=== PATIENT | male | born 1975 | race Caucasian/White ===

== ENCOUNTER 2020-04-01 15:05 | Inpatient (IN) | payer OTHER ==
[~2020-04-01] VITALS: Ht 185.4 cm; Wt 106.0 kg
[2020-04-01] MEDS ORDERED: SODIUM CHLORIDE 0.9% 1,000 ML IV ONE (15:13)
[2020-04-01] MEDS ORDERED: HYDROmorphone 1 MG/ML, 1ML INJ ONE ×2 (15:21→16:40)
[2020-04-01] MEDS: HYDROmorphone 2 MG/ML, 1ML IVPush PRN ×2 (15:23→16:51)
[2020-04-01] MEDS ORDERED: SODIUM CHLORIDE FLUSH 10ML SYR IVF ONE (15:30)
[2020-04-01] MEDS ORDERED: ONDANSETRON 2MG/ML, 2ML IVPush ONE (15:30)
[2020-04-01 15:41] LABS: CREATININE 1.36 mg/dL (0.7-1.3)
[2020-04-01 15:46] LABS: TROPONIN I < 0.015 ng/mL (0.000-0.045)
[2020-04-01 16:00] LABS: MICROSCOPIC NOT IND
--- NOTE | 2020-04-01 16:04 | NUR ---
PT LAYING ON GURNEY WITH EYES CLOSED, RESPONDS APPROP TO STAFF, NAD, COMFORT MEASURES PROVIDED, AT BS, CALL LIGHT WITHIN REACH.
[2020-04-01 16:10] LABS: ANION GAP 12 mmol/L (5-15); CHLORIDE 105 mmol/L (98-107)
[2020-04-01 16:13] LABS: BILIRUBIN,TOTAL 0.6 mg/dL (0.2-1.0)
[2020-04-01 16:14] LABS: ALANINE AMINOTRANSFERASE 51 U/L (12-78); ALKALINE PHOSPHATASE 97 U/L (45-117); TOTAL PROTEIN 7.6 g/dL (6.4-8.2)
[2020-04-01 16:15] LABS: MEAN CORPUSCULAR HEMOGLOBIN 30.5 pg (27.5-34.5); MEAN CORPUSCULAR HGB CONC 34.4 g/dL (33.2-36.2); RED BLOOD COUNT 4.58 x10^6/uL (4.38-5.82)
[2020-04-01 16:17] LABS: MEAN PLATELET VOLUME 7.5 fL (7.4-10.4); PLATELET COUNT 266 x10^3/uL (130-400)
[2020-04-01 16:19] LABS: MD YES
[2020-04-01 16:25] LABS: CALCIUM 9.1 mg/dL (8.5-10.1)
[2020-04-01 16:26] LABS: BAND#(MANUAL) 0.32 x10^3/uL; BANDS%(MANUAL) 3 % (0-7); EOS#(MANUAL) 0.11 x10^3/uL (0.0-0.4); EOS% (MANUAL) 1 % (1-7); LYMPH#(MANUAL) 1.47 x10^3/uL (1-3.4); LYMPHS% (MANUAL) 14 % (22-44); MONOS#(MANUAL) 0.63 x10^3/uL (0.3-2.7); MONOS% (MANUAL) 6 % (2-9); SEG#(MANUAL) 7.98 x10^3/uL (1.8-6.8); SEGS% (MANUAL) 76 % (42-75)
[2020-04-01 16:27] LABS: ALBUMIN 3.5 g/dL (3.4-5.0)
[2020-04-01 16:30] LABS: <PLATELET ESTIMATE> ADEQUATE; <PLT MORPHOLOGY> NORMAL PLT MORPH; <RBC MORPHOLOGY> NORMAL
[2020-04-01] MEDS ORDERED: INSULIN SINGLE DOSE, ER ONE (16:35)
--- NOTE | 2020-04-01 16:55 | NUR ---
PT CONTINUES LAYING ON GURNEY WITH EYES CLOSED, RESPONDS APPROP TO STAFF, C/O ABD PAIN- MEDICATED PER EMAR, COMFORT MEASURES PROVIDED, AT BS, CALL LIGHT WITHIN REACH.
[2020-04-01] MEDS ORDERED: SODIUM CHLORIDE 0.9% 1,000ML IVBOLUS ONE (17:00)
[2020-04-01] MEDS ORDERED: INSULIN REGULAR 100 UNITS/ML, 3ML VIAL SQ-INSULIN ONE (17:00)
[2020-04-01] MEDS ORDERED: EMPA1TAB PO (17:03)
[2020-04-01] MEDS ORDERED: ATOR20TA37 PO (17:03)
[2020-04-01] MEDS ORDERED: INSU100I28 SQ (17:03)
[2020-04-01] MEDS ORDERED: INSU100C5 SQ-INSULIN (17:03)
[2020-04-01] MEDS ORDERED: METF500T17 PO (17:03)
[2020-04-01] MEDS ORDERED: GEMF600T8 PO (17:03)
[2020-04-01] MEDS ORDERED: TIZA4TAB2 PO (17:03)
[2020-04-01] MEDS ORDERED: RANITIDINE PO (17:03)
[2020-04-01 17:13] LABS: PH, VENOUS 7.348 pH (7.320-7.420)
[2020-04-01] MEDS ORDERED: OMNIPAQUE 350 MG/ML, 100ML BOTTLE ONE (17:22)
[2020-04-01 17:47] LABS: ACETONE, SERUM Trace (Negative)
[2020-04-01] MEDS ORDERED: SODIUM CHLORIDE FLUSH 10ML SYR IVF PRN (18:00)
--- NOTE | 2020-04-01 18:11 | NUR ---
PT LAYING ON GURNEY WITH EYES CLOSED ABLE TO REPOSITION HIMSELF FOR COMFORT, RESPONDS APPROP TO STAFF, NO NEEDS AT THIS TIME, CALL LIGHT WITHIN REACH.
--- NOTE | 2020-04-01 18:56 | NUR ---
REPORT GIVEN TO SATYA JAMES
[2020-04-01] MEDS ORDERED: SODIUM CHLORIDE 0.9% 1,000 ML IV SCH (19:30)
[2020-04-01] MEDS ORDERED: MORPHINE SULFATE 4 MG/ML, 1ML ONE ×2 (19:34→20:25)
[2020-04-01] MEDS: morphine SULFATE 10 MG/ML, 1ML IVPush PRN ×3 (19:54→22:26)
--- NOTE | 2020-04-01 20:00 | NUR ---
Ciera rodriguez in EDM - 04/01/20 at 2018 by ELANA Pt [place]
--- NOTE | 2020-04-01 20:01 | NUR ---
Report given to Glenis JAMES
--- NOTE | 2020-04-01 20:01 | NUR ---
BS 261 finger stick
[2020-04-01] MEDS: SODIUM CHLORIDE 0.9% 1,000 ML IV SCH (20:33)
[2020-04-01 21:17] VITALS: BP 118/75
[2020-04-01] MEDS: HEPARIN 5,000 UNITS/ML, 1ML SQ SCH (22:12)
[2020-04-01] MEDS: INSULIN LISPRO 100 UNITS/ML, PEN SQ-INSULIN SCH (22:13)
[2020-04-01] MEDS: ONDANSETRON 2MG/ML, 2ML IVPush PRN (23:11)
[2020-04-02 00:47] VITALS: BP 110/83
[2020-04-02] MEDS: HYDROmorphone 1 MG/ML, 1ML INJ IV PRN ×7 (01:18→23:43)
[2020-04-02] MEDS: SODIUM CHLORIDE 0.9% 1,000 ML IV SCH ×3 (02:18→21:50)
[2020-04-02] MEDS: INSULIN LISPRO 100 UNITS/ML, PEN SQ-INSULIN SCH ×4 (03:50→20:45)
[2020-04-02 05:35] LABS: ANION GAP 13 mmol/L (5-15); CHLORIDE 98 mmol/L (98-107)
[2020-04-02 05:40] LABS: CREATININE 0.96 mg/dL (0.7-1.3)
[2020-04-02 05:59] LABS: CHOLESTEROL, TOTAL 801 mg/dL (140-239)
[2020-04-02 06:02] LABS: CHOL/HDL RATIO 14.1; HDL CHOL % 7 % (26-37); HDL CHOLESTEROL (DIRECT) 57 mg/dL (40-60)
[2020-04-02 06:10] LABS: TRIGLYCERIDES > 4000 mg/dL (50-200)
[2020-04-02] MEDS: HEPARIN 5,000 UNITS/ML, 1ML SQ SCH ×3 (06:51→23:43)
[2020-04-02 06:57] VITALS: BP 119/88
[2020-04-02 08:18] LABS: MEAN CORPUSCULAR HEMOGLOBIN 29.5 pg (27.5-34.5); MEAN CORPUSCULAR HGB CONC 33.3 g/dL (33.2-36.2); MEAN PLATELET VOLUME 8.2 fL (7.4-10.4); PLATELET COUNT 262 x10^3/uL (130-400); RED BLOOD COUNT 5.63 x10^6/uL (4.38-5.82); RED CELL DISTRIBUTION WIDTH 12.8 % (9.4-14.8)
[2020-04-02 08:20] LABS: BASOPHILS % (AUTO) 0 % (0-1); EOSINOPHILS # (AUTO) 0.01 x10^3/uL (0-0.4); EOSINOPHILS % (AUTO) 0 % (1-7); LYMPHOCYTES # (AUTO) 1.25 x10^3/uL (1-3.4); LYMPHOCYTES % (AUTO) 15 % (22-44); MD SCAN; MONOCYTES # (AUTO) 0.53 x10^3/uL (0.2-0.8); MONOCYTES % (AUTO) 6 % (2-9); NEUTROPHILS # (AUTO) 6.49 x10^3/uL (1.8-6.8); NEUTROPHILS % (AUTO) 78 % (42-75)
[2020-04-02] MEDS ORDERED: PANTOPRAZOLE 40 MG IV ONE (08:32)
[2020-04-02] MEDS: PANTOPRAZOLE 40 MG IV IVPush SCH (08:35)
[2020-04-02] MEDS: ONDANSETRON 2MG/ML, 2ML IVPush PRN ×2 (08:42→20:31)
[2020-04-02] MEDS: BISACODYL 10 MG SUPP PR PRN (10:24)
[2020-04-02] MEDS ORDERED: FAMOTIDINE 20 MG/2 ML IVPush SCH (11:00)
[2020-04-02] MEDS ORDERED: SODIUM BICARBONATE 1 MEQ/ML, 50ML VIAL IVPush SCH (11:00)
[2020-04-02] MEDS ORDERED: ACETAMINOPHEN 325 MG TABLET PO ONE (11:00)
[2020-04-02] MEDS ORDERED: methylPREDNISolone SOD SUCC 125 MG/2 ML IVPush SCH (11:00)
[2020-04-02] MEDS ORDERED: DIPHENHYDRAMINE 50 MG/ML, 1ML IVPush ONE (11:00)
[2020-04-02 15:19] VITALS: BP 127/84
[2020-04-02] MEDS ORDERED: ALBUMIN HUMAN 25%, 25GM/100ML IV PRN (15:30)
[2020-04-02] MEDS ORDERED: CALCIUM GLUCONATE 4.6 MEQ/10 ML IV PRN ×2 (15:30→16:00)
[2020-04-02] MEDS: ALBUMIN HUMAN 5%, 25G/500ML IV PRN (15:52)
[2020-04-02 18:42] LABS: ALBUMIN 3.5 g/dL (3.4-5.0); ANION GAP 10 mmol/L (5-15); CHLORIDE 112 mmol/L (98-107); CREATININE 0.95 mg/dL (0.7-1.3)
[2020-04-02 18:50] LABS: ALKALINE PHOSPHATASE 27 U/L (45-117); BILIRUBIN,TOTAL 0.8 mg/dL (0.2-1.0)
[2020-04-02 20:17] LABS: CALCIUM 6.2 mg/dL (8.5-10.1)
[2020-04-02 20:19] VITALS: BP 113/76
[2020-04-02 20:21] LABS: ALANINE AMINOTRANSFERASE 22 U/L (12-78); TOTAL PROTEIN 6.7 g/dL (6.4-8.2)
[2020-04-03 01:50] VITALS: BP 128/85
[2020-04-03] MEDS: SODIUM CHLORIDE 0.9% 1,000 ML IV SCH ×2 (02:38→08:29)
[2020-04-03] MEDS: HYDROmorphone 1 MG/ML, 1ML INJ IV PRN ×6 (02:38→22:13)
[2020-04-03] MEDS: INSULIN LISPRO 100 UNITS/ML, PEN SQ-INSULIN SCH ×4 (02:47→20:26)
[2020-04-03 05:12] LABS: INTERNATIONAL NORMALIZED RATIO 1.15 (0.93-1.1); PROTHROMBIN TIME 11.9 Seconds (9.6-11.5)
[2020-04-03 05:17] LABS: MEAN CORPUSCULAR HEMOGLOBIN 29.7 pg (27.5-34.5); MEAN PLATELET VOLUME 7.8 fL (7.4-10.4); PLATELET COUNT 266 x10^3/uL (130-400); RED BLOOD COUNT 5.31 x10^6/uL (4.38-5.82); RED CELL DISTRIBUTION WIDTH 13.3 % (9.4-14.8)
[2020-04-03 05:26] LABS: ALBUMIN 3.1 g/dL (3.4-5.0); ANION GAP 12 mmol/L (5-15); CHLORIDE 110 mmol/L (98-107)
[2020-04-03 05:30] LABS: CALCIUM 5.3 mg/dL (8.5-10.1)
[2020-04-03 05:38] LABS: ALKALINE PHOSPHATASE 31 U/L (45-117); BILIRUBIN,TOTAL 0.8 mg/dL (0.2-1.0); CREATININE 0.87 mg/dL (0.7-1.3); TOTAL PROTEIN 5.7 g/dL (6.4-8.2); TRIGLYCERIDES 1071 mg/dL (50-200)
[2020-04-03 05:40] LABS: ALANINE AMINOTRANSFERASE 21 U/L (12-78)
[2020-04-03 05:47] LABS: MD YES
[2020-04-03 05:50] LABS: BAND#(MANUAL) 2.44 x10^3/uL; BANDS%(MANUAL) 29 % (0-7); LYMPHS% (MANUAL) 25 % (22-44); MONOS#(MANUAL) 0.34 x10^3/uL (0.3-2.7); MONOS% (MANUAL) 4 % (2-9); SEG#(MANUAL) 3.53 x10^3/uL (1.8-6.8); SEGS% (MANUAL) 42 % (42-75)
[2020-04-03 05:51] LABS: <PLATELET ESTIMATE> ADEQUATE; <PLT MORPHOLOGY> NORMAL PLT MORPH; <RBC MORPHOLOGY> NORMAL
[2020-04-03] MEDS ORDERED: CALCIUM GLUCONATE 4.6 MEQ/10 ML IVPush ONE (06:30)
[2020-04-03 06:48] VITALS: BP 124/78
[2020-04-03] MEDS ORDERED: CALCIUM GLUCONATE 4.6 MEQ in SODIUM CHLORIDE 0.9% 50 ML IV ONE (07:00)
[2020-04-03] MEDS: PANTOPRAZOLE 40 MG IV IVPush SCH (08:30)
[2020-04-03] MEDS: HEPARIN 5,000 UNITS/ML, 1ML SQ SCH ×3 (08:33→23:33)
[2020-04-03] MEDS ORDERED: CALCIUM GLUCONATE 4.6 MEQ/10 ML IV PRN (09:30)
[2020-04-03] MEDS: ALBUMIN HUMAN 5%, 25G/500ML IV PRN (10:23)
[2020-04-03] MEDS ORDERED: SODIUM BICARBONATE 8.4% 75 MEQ in SODIUM CHLORIDE 0.45% 1,000 ML IV SCH (12:00)
[2020-04-03 13:26] LABS: CALCIUM 6.7 mg/dL (8.5-10.1)
[2020-04-03 13:39] VITALS: BP 130/81
[2020-04-03] MEDS ORDERED: MAGNESIUM SULFATE PMX 2GM/50ML 50 ML IV ONE (19:00)
[2020-04-03] MEDS ORDERED: HEPARIN 25,000 UNITS/250ML PMX 250 ML IV SCH (19:00)
[2020-04-03 20:21] VITALS: BP 117/73
[2020-04-03] MEDS ORDERED: DIPHENHYDRAMINE 50 MG/ML, 1ML IVPush ONE (23:00)
[2020-04-03] MEDS ORDERED: DIPHENHYDRAMINE 50 MG CAPSULE PO ONE (23:30)
[2020-04-04] MEDS ORDERED: MAGNESIUM SULFATE PMX 2GM/50ML 50 ML IV ONE (01:00)
[2020-04-04 03:05] VITALS: BP 99/58
[2020-04-04] MEDS: INSULIN LISPRO 100 UNITS/ML, PEN SQ-INSULIN SCH ×4 (03:15→21:14)
[2020-04-04] MEDS: HYDROmorphone 1 MG/ML, 1ML INJ IV PRN ×5 (03:47→21:14)
[2020-04-04 05:59] LABS: INTERNATIONAL NORMALIZED RATIO 0.96 (0.93-1.1); PROTHROMBIN TIME 9.9 Seconds (9.6-11.5)
[2020-04-04 06:06] LABS: CHLORIDE 108 mmol/L (98-107)
[2020-04-04 06:17] LABS: ALANINE AMINOTRANSFERASE 12 U/L (12-78); ALBUMIN 3.1 g/dL (3.4-5.0); ALKALINE PHOSPHATASE 25 U/L (45-117); ANION GAP 9 mmol/L (5-15); CALCIUM 6.7 mg/dL (8.5-10.1); CREATININE 0.69 mg/dL (0.7-1.3); TOTAL PROTEIN 5.1 g/dL (6.4-8.2); TRIGLYCERIDES 440 mg/dL (50-200)
[2020-04-04 06:23] LABS: MEAN CORPUSCULAR HGB CONC 32.5 g/dL (33.2-36.2); MEAN PLATELET VOLUME 7.4 fL (7.4-10.4); PLATELET COUNT 205 x10^3/uL (130-400); RED BLOOD COUNT 4.51 x10^6/uL (4.38-5.82); RED CELL DISTRIBUTION WIDTH 13.3 % (9.4-14.8)
[2020-04-04 07:00] LABS: MD YES
[2020-04-04] MEDS: SODIUM CHLORIDE 0.9% 1,000 ML IV SCH ×2 (07:14→19:50)
[2020-04-04 07:27] LABS: BAND#(MANUAL) 1.17 x10^3/uL; BANDS%(MANUAL) 17 % (0-7); METAMYELOCYTES# (MANUAL) 0.07 x10^3/uL (0-0); METAMYELOCYTES% (MANUAL) 1 % (0-1); MONOS#(MANUAL) 0.28 x10^3/uL (0.3-2.7); MONOS% (MANUAL) 4 % (2-9); REACTIVE LYMPHS # (MANUAL) 0.07 x10^3/uL (0-0); REACTIVE LYMPHS % (MANUAL) 1 % (0-0); SEGS% (MANUAL) 48 % (42-75)
[2020-04-04 07:28] LABS: <PLATELET ESTIMATE> ADEQUATE; <PLT MORPHOLOGY> NORMAL PLT MORPH; <RBC MORPHOLOGY> NORMAL; LYMPHS% (MANUAL) 29 % (22-44); SEG#(MANUAL) 3.31 x10^3/uL (1.8-6.8)
[2020-04-04 07:38] VITALS: BP 110/69
[2020-04-04] MEDS: PANTOPRAZOLE 40 MG IV IVPush SCH (08:21)
[2020-04-04] MEDS: HEPARIN 5,000 UNITS/ML, 1ML SQ SCH ×2 (08:22→17:07)
[2020-04-04] MEDS ORDERED: HYDROmorphone 2 MG/ML, 1ML ONE (12:49)
[2020-04-04 14:15] VITALS: BP 113/72
[2020-04-04] MEDS ORDERED: CALCIUM CARBONATE 500 MG TAB.CHEW PO PRN (16:00)
[2020-04-04 19:27] VITALS: BP 126/71
[2020-04-05] MEDS: HEPARIN 5,000 UNITS/ML, 1ML SQ SCH ×3 (00:25→16:19)
[2020-04-05] MEDS: HYDROmorphone 1 MG/ML, 1ML INJ IV PRN ×5 (01:43→20:50)
[2020-04-05 01:51] VITALS: BP 125/80
[2020-04-05] MEDS: INSULIN LISPRO 100 UNITS/ML, PEN SQ-INSULIN SCH ×4 (03:01→21:08)
[2020-04-05 06:11] LABS: INTERNATIONAL NORMALIZED RATIO 0.91 (0.93-1.1); PROTHROMBIN TIME 9.4 Seconds (9.6-11.5)
[2020-04-05 06:15] LABS: MEAN CORPUSCULAR HEMOGLOBIN 29.8 pg (27.5-34.5); MEAN CORPUSCULAR HGB CONC 33.5 g/dL (33.2-36.2); MEAN PLATELET VOLUME 7.1 fL (7.4-10.4); PLATELET COUNT 211 x10^3/uL (130-400); RED BLOOD COUNT 4.44 x10^6/uL (4.38-5.82); RED CELL DISTRIBUTION WIDTH 13.5 % (9.4-14.8)
[2020-04-05 06:46] LABS: ANION GAP 11 mmol/L (5-15); CALCIUM 7.9 mg/dL (8.5-10.1); CHLORIDE 104 mmol/L (98-107); CREATININE 0.58 mg/dL (0.7-1.3); TRIGLYCERIDES 402 mg/dL (50-200)
[2020-04-05 06:49] LABS: MD YES
[2020-04-05 06:50] LABS: BAND#(MANUAL) 0.74 x10^3/uL; BANDS%(MANUAL) 8 % (0-7); EOS#(MANUAL) 0.19 x10^3/uL (0.0-0.4); EOS% (MANUAL) 2 % (1-7); LYMPH#(MANUAL) 1.95 x10^3/uL (1-3.4); LYMPHS% (MANUAL) 21 % (22-44); MONOS#(MANUAL) 0.19 x10^3/uL (0.3-2.7); MONOS% (MANUAL) 2 % (2-9); MYELOCYTES# (MANUAL) 0.09 x10^3/uL (0-0); MYELOCYTES% (MANUAL) 1 % (0-0); SEG#(MANUAL) 6.14 x10^3/uL (1.8-6.8); SEGS% (MANUAL) 66 % (42-75)
[2020-04-05 06:51] LABS: <PLATELET ESTIMATE> ADEQUATE; <PLT MORPHOLOGY> NORMAL PLT MORPH; <RBC MORPHOLOGY> NORMAL
[2020-04-05 07:52] VITALS: BP 138/80
[2020-04-05] MEDS: PANTOPRAZOLE 40 MG IV IVPush SCH (09:03)
[2020-04-05] MEDS: SODIUM CHLORIDE 0.9% 1,000 ML IV SCH (09:08)
[2020-04-05 13:45] VITALS: BP 122/76
[2020-04-05 19:59] VITALS: BP 135/88
[2020-04-05] MEDS: POLYETHYLENE GLYCOL 17 GM PACKET PO PRN (20:53)
[2020-04-05 22:32] LABS: MICROSCOPIC AUTO
[2020-04-06 00:04] VITALS: BP 129/80
[2020-04-06] MEDS: HEPARIN 5,000 UNITS/ML, 1ML SQ SCH ×3 (00:30→15:06)
[2020-04-06] MEDS: HYDROcodone/APAP 5/325 TABLET PO PRN ×2 (00:30→06:16)
[2020-04-06] MEDS: HYDROmorphone 1 MG/ML, 1ML INJ IV PRN ×2 (03:16→07:48)
[2020-04-06] MEDS: INSULIN LISPRO 100 UNITS/ML, PEN SQ-INSULIN SCH ×4 (03:25→20:11)
[2020-04-06 06:17] LABS: MEAN CORPUSCULAR HEMOGLOBIN 29.5 pg (27.5-34.5); MEAN CORPUSCULAR HGB CONC 33.5 g/dL (33.2-36.2); MEAN PLATELET VOLUME 6.9 fL (7.4-10.4); PLATELET COUNT 210 x10^3/uL (130-400); RED BLOOD COUNT 4.19 x10^6/uL (4.38-5.82); RED CELL DISTRIBUTION WIDTH 13.3 % (9.4-14.8)
[2020-04-06 06:19] LABS: INTERNATIONAL NORMALIZED RATIO 0.97 (0.93-1.1)
[2020-04-06 06:25] LABS: ANION GAP 9 mmol/L (5-15); CHLORIDE 106 mmol/L (98-107)
[2020-04-06 06:26] LABS: CREATININE 0.59 mg/dL (0.7-1.3); TRIGLYCERIDES 293 mg/dL (50-200)
[2020-04-06 06:38] LABS: MD YES
[2020-04-06 06:41] LABS: <PLATELET ESTIMATE> ADEQUATE; <PLT MORPHOLOGY> NORMAL PLT MORPH; <RBC MORPHOLOGY> NORMAL; BAND#(MANUAL) 0.87 x10^3/uL; BANDS%(MANUAL) 10 % (0-7); EOS#(MANUAL) 0.09 x10^3/uL (0.0-0.4); EOS% (MANUAL) 1 % (1-7); LYMPH#(MANUAL) 0.87 x10^3/uL (1-3.4); LYMPHS% (MANUAL) 10 % (22-44); METAMYELOCYTES# (MANUAL) 0.09 x10^3/uL (0-0); METAMYELOCYTES% (MANUAL) 1 % (0-1); MONOS#(MANUAL) 0.52 x10^3/uL (0.3-2.7); MONOS% (MANUAL) 6 % (2-9); MYELOCYTES# (MANUAL) 0.09 x10^3/uL (0-0); MYELOCYTES% (MANUAL) 1 % (0-0); SEG#(MANUAL) 6.18 x10^3/uL (1.8-6.8); SEGS% (MANUAL) 71 % (42-75)
[2020-04-06] MEDS: SENNA/DOCUSATE TABLET PO SCH (07:32)
[2020-04-06 07:41] VITALS: BP 121/83
[2020-04-06] MEDS: MAGNESIUM HYDROXIDE 8%, 30ML UDC PO PRN (09:09)
[2020-04-06] MEDS: BISACODYL 10 MG SUPP PR PRN (09:10)
[2020-04-06 09:44] VITALS: BP 128/80
[2020-04-06] MEDS: OXYcodone IR 5MG TABLET PO PRN ×2 (10:50→17:26)
[2020-04-06] MEDS: HYDROmorphone 2 MG/ML, 1ML IVPush PRN ×2 (15:26→23:37)
[2020-04-06 15:47] VITALS: BP 138/95
[2020-04-06 18:55] VITALS: BP 126/74
[2020-04-06] MEDS: POLYETHYLENE GLYCOL 17 GM PACKET PO PRN (20:11)
[2020-04-07] MEDS: HEPARIN 5,000 UNITS/ML, 1ML SQ SCH ×3 (00:05→15:15)
[2020-04-07 01:41] VITALS: BP 130/75
[2020-04-07] MEDS: INSULIN LISPRO 100 UNITS/ML, PEN SQ-INSULIN SCH ×4 (03:19→21:08)
[2020-04-07] MEDS: OXYcodone IR 5MG TABLET PO PRN ×3 (05:37→21:36)
[2020-04-07 05:57] LABS: INTERNATIONAL NORMALIZED RATIO 0.98 (0.93-1.1); PROTHROMBIN TIME 10.1 Seconds (9.6-11.5)
[2020-04-07 06:14] LABS: CHLORIDE 102 mmol/L (98-107)
[2020-04-07 06:19] LABS: ANION GAP 9 mmol/L (5-15); CALCIUM 7.9 mg/dL (8.5-10.1); CREATININE 0.61 mg/dL (0.7-1.3); TRIGLYCERIDES 261 mg/dL (50-200)
[2020-04-07 06:45] LABS: MEAN CORPUSCULAR HEMOGLOBIN 28.9 pg (27.5-34.5); MEAN CORPUSCULAR HGB CONC 32.7 g/dL (33.2-36.2); MEAN PLATELET VOLUME 7.1 fL (7.4-10.4); PLATELET COUNT 238 x10^3/uL (130-400); RED BLOOD COUNT 4.08 x10^6/uL (4.38-5.82); RED CELL DISTRIBUTION WIDTH 13.9 % (9.4-14.8)
[2020-04-07 06:46] LABS: MD YES
[2020-04-07 06:47] LABS: BAND#(MANUAL) 1.37 x10^3/uL; BANDS%(MANUAL) 13 % (0-7); METAMYELOCYTES# (MANUAL) 0.11 x10^3/uL (0-0); METAMYELOCYTES% (MANUAL) 1 % (0-1)
[2020-04-07 06:48] LABS: <PLATELET ESTIMATE> ADEQUATE; <PLT MORPHOLOGY> NORMAL PLT MORPH; <RBC MORPHOLOGY> NORMAL; LYMPH#(MANUAL) 1.47 x10^3/uL (1-3.4); LYMPHS% (MANUAL) 14 % (22-44); MONOS#(MANUAL) 1.47 x10^3/uL (0.3-2.7); MONOS% (MANUAL) 14 % (2-9); SEG#(MANUAL) 6.09 x10^3/uL (1.8-6.8); SEGS% (MANUAL) 58 % (42-75)
[2020-04-07 06:57] VITALS: BP 96/58
[2020-04-07] MEDS: SENNA/DOCUSATE TABLET PO SCH (07:54)
[2020-04-07] MEDS: HYDROmorphone 2 MG/ML, 1ML IVPush PRN ×2 (07:55→18:05)
[2020-04-07] MEDS: BISACODYL 10 MG SUPP PR PRN (10:06)
[2020-04-07 10:46] VITALS: BP 122/73
[2020-04-07 12:39] VITALS: BP 116/79
[2020-04-07] MEDS: MAGNESIUM HYDROXIDE 8%, 30ML UDC PO PRN ×2 (14:30→21:36)
[2020-04-07] MEDS: SODIUM CHLORIDE 0.9% 1,000 ML IV SCH (18:06)
[2020-04-07 18:42] VITALS: BP 131/77
[2020-04-07] MEDS ORDERED: HYDROmorphone 1 MG/ML, 1ML INJ IV ONE (20:30)
[2020-04-07 21:41] LABS: TROPONIN I < 0.015 ng/mL (0.000-0.045)
[2020-04-08] VITALS (7 sets, daily range): BP systolic 104–148; BP diastolic 70–81
[2020-04-08] MEDS: HYDROmorphone 2 MG/ML, 1ML IVPush PRN ×3 (00:24→13:56)
[2020-04-08] MEDS: HEPARIN 5,000 UNITS/ML, 1ML SQ SCH ×3 (00:25→15:58)
[2020-04-08] MEDS ORDERED: OMNIPAQUE 350 MG/ML, 100ML BOTTLE ONE (00:41)
[2020-04-08] MEDS: INSULIN LISPRO 100 UNITS/ML, PEN SQ-INSULIN SCH ×4 (03:02→20:42)
[2020-04-08] MEDS: OXYcodone IR 5MG TABLET PO PRN ×3 (04:02→17:55)
[2020-04-08 05:41] LABS: MEAN CORPUSCULAR HEMOGLOBIN 29.3 pg (27.5-34.5); MEAN CORPUSCULAR HGB CONC 33.1 g/dL (33.2-36.2); MEAN PLATELET VOLUME 6.8 fL (7.4-10.4); PLATELET COUNT 250 x10^3/uL (130-400); RED BLOOD COUNT 3.81 x10^6/uL (4.38-5.82); RED CELL DISTRIBUTION WIDTH 13.2 % (9.4-14.8)
[2020-04-08 05:49] LABS: ANION GAP 10 mmol/L (5-15); CALCIUM 8.1 mg/dL (8.5-10.1); CHLORIDE 102 mmol/L (98-107)
[2020-04-08 05:54] LABS: ALANINE AMINOTRANSFERASE 64 U/L (12-78); ALKALINE PHOSPHATASE 120 U/L (45-117); BILIRUBIN,TOTAL 0.5 mg/dL (0.2-1.0); TOTAL PROTEIN 5.6 g/dL (6.4-8.2); TRIGLYCERIDES 307 mg/dL (50-200)
[2020-04-08 06:36] LABS: MD YES
[2020-04-08 06:38] LABS: BAND#(MANUAL) 1.52 x10^3/uL; BANDS%(MANUAL) 13 % (0-7); LYMPH#(MANUAL) 1.29 x10^3/uL (1-3.4); LYMPHS% (MANUAL) 11 % (22-44); METAMYELOCYTES# (MANUAL) 0.23 x10^3/uL (0-0); METAMYELOCYTES% (MANUAL) 2 % (0-1); MONOS% (MANUAL) 6 % (2-9); SEG#(MANUAL) 7.96 x10^3/uL (1.8-6.8); SEGS% (MANUAL) 68 % (42-75)
[2020-04-08 06:39] LABS: <PLATELET ESTIMATE> ADEQUATE; <PLT MORPHOLOGY> NORMAL PLT MORPH; <RBC MORPHOLOGY> NORMAL; TOXIC GRAN 1+
[2020-04-08] MEDS: SODIUM CHLORIDE 0.9% 1,000 ML IV SCH ×2 (07:43→20:36)
[2020-04-08] MEDS: SENNA/DOCUSATE TABLET PO SCH (07:51)
[2020-04-08 11:36] LABS: TROPONIN I < 0.015 ng/mL (0.000-0.045)
[2020-04-08] MEDS: MAGNESIUM HYDROXIDE 8%, 30ML UDC PO PRN (15:58)
[2020-04-08 17:30] LABS: TROPONIN I < 0.015 ng/mL (0.000-0.045)
[2020-04-08] MEDS ORDERED: HYDROmorphone 2 MG/ML, 1ML IVPush PRN (18:00)
[2020-04-08] MEDS: GEMFIBROZIL 600 MG TABLET PO SCH (20:36)
[2020-04-08 23:17] LABS: TROPONIN I < 0.015 ng/mL (0.000-0.045)
[2020-04-09] MEDS: HEPARIN 5,000 UNITS/ML, 1ML SQ SCH ×2 (01:14→11:56)
[2020-04-09] MEDS: OXYcodone IR 5MG TABLET PO PRN ×2 (01:14→11:56)
[2020-04-09 01:24] VITALS: BP 129/80
[2020-04-09] MEDS: INSULIN LISPRO 100 UNITS/ML, PEN SQ-INSULIN SCH ×3 (03:11→15:00)
[2020-04-09] MEDS: SODIUM CHLORIDE 0.9% 1,000 ML IV SCH ×2 (04:30→15:00)
[2020-04-09 06:51] VITALS: BP 123/81
[2020-04-09] MEDS: LIPASE/PROTEASE/AMYLASE TAB PO SCH ×3 (09:25→16:00)
[2020-04-09] MEDS: SENNA/DOCUSATE TABLET PO SCH (09:25)
[2020-04-09] MEDS: GEMFIBROZIL 600 MG TABLET PO SCH (09:25)
[2020-04-09] MEDS ORDERED: REGADENOSON 0.4 MG/5 ML SYRINGE ONE (09:53)
[2020-04-09 12:16] VITALS: BP 122/75
[2020-04-09] MEDS ORDERED: LIPA1TAB3 PO (17:04)
[2020-04-09] MEDS ORDERED: GEMF600T8 PO (17:04)
== END 2020-04-09 17:40 | disposition home or self-care (01) | DRG 439 ==
LOC: ED 15:28 → EDIP 17:57 → 3N 20:31 → 5SO 04-08 12:02
PROVIDERS: ADMIT Family Medicine; ATTEND Internal Medicine
PROC: 6A551Z3 Pheresis of Plasma, Multiple (ICD-10-PCS; principal; 2020-04-02)
PROC: 02HV33Z Insertion of Infusion Device into Superior Vena Cava, Percutaneous Approach (ICD-10-PCS; 2020-04-02)
PROC: B548ZZA Ultrasonography of Superior Vena Cava, Guidance (ICD-10-PCS; 2020-04-02)
PROC: B5181ZA Fluoroscopy of Superior Vena Cava using Low Osmolar Contrast, Guidance (ICD-10-PCS; 2020-04-02)
DX: K85.00 Idiopathic acute pancreatitis without necrosis or infection (principal); E87.2 Acidosis; F11.20 Opioid dependence, uncomplicated; R65.10 Systemic inflammatory response syndrome (SIRS) of non-infectious origin without acute organ dysfunction; D72.825 Bandemia; E11.65 Type 2 diabetes mellitus with hyperglycemia; E78.1 Pure hyperglyceridemia; E83.42 Hypomagnesemia; E83.51 Hypocalcemia; F10.21 Alcohol dependence, in remission; K59.00 Constipation, unspecified; K76.0 Fatty (change of) liver, not elsewhere classified; Z79.4 Long term (current) use of insulin; Z91.14 Patient's other noncompliance with medication regimen; Z91.19 Patient's noncompliance with other medical treatment and regimen; Z79.899 Other long term (current) drug therapy; Y90.9 Presence of alcohol in blood, level not specified
CPT/HCPCS: 36415; 77001; 96361; 96374; 96376; 99285; J3490; 36514; 74177; 74178; 78452; 80048; 80053; 80061; 81001; 81003; 82010; 82150; 82310; 82330; 82803; 82962; 83036; 83605; 83690; 83735; 84100; 84478; 84484; 85025; 85384; 85610; 93005; 93017; C1894; G0378; J0610; J1170; J1644; J2405; J2785; P9045; Q9967; A9502; C1751; C9113; J1200; J1642; J1815; J2270; J2930; J3475; J7030